=== PATIENT | male | born 2005 | race Two or more races ===

== ENCOUNTER 2024-12-26 02:59 | Inpatient (IN) | payer MEDICAID ==
[~2024-12-26] VITALS: Ht 167.6 cm; Wt 54.5 kg
[2024-12-26 03:36] LABS: Eosinophils % (auto) 0.1 % (0.0-7.0)
--- NOTE | 2024-12-26 03:38 | ED.PDOC ---
GI ASSESSMENT HPI Comments 19 year old male came to the ER due to abdominal pain. Patient states for the past 6 hours he has been having epigastric abdominal pain, sharp, intermittent, no radiating associated with a nausea and vomiting and lightheadedness. States last bowel movement was yesterday. Denies any history of abdominal surgeries. Chief Complaint: Abdominal Pain Time Seen by MD: 03:38 Reviewed Notes: Nurses Notes Allergies: Coded Allergies: NO KNOWN ALLERGIES (Unverified , 12/26/24) Information Source: Patient Mode of Arrival: Ambulatory Timing: Hours Duration: Intermittent Prehospital treatment: None Quality: Sharp Vomitus: Watery Stool: Normal Severity: Moderate Recent: Possible spoiled food Recent Hx of: None Pain Location: Epigastric Modifying Factors: Food, Position, Nothing Associated sign and symptoms: Nausea, Vomiting, Abdominal Pain Past Medical History PAST MEDICAL HISTORY: Denies Surgical History: Denies all surgeries Family History Family History: Reviewed,noncontributory to illness Social History Smoker: Non-Smoker Alcohol: Denies ETOH Use Drugs: Denies Drug Use Lives In: Home Constitutional: denies: chills, diaphoresis, fatigue, fever, malaise, sweats, weakness, others EENTM: denies: blurred vision, double vision, ear bleeding, ear discharge, ear drainage, ear pain, ear ringing, eye pain, eye redness, hearing loss, mouth pain, mouth swelling, nasal discharge, nose bleeding, nose congestion, nose pain, photophobia, tearing, throat pain, throat swelling, voice changes, others Respiratory: denies: cough, hemoptysis, orthopnea, SOB at rest, shortness of breath, SOB with excertion, stridor, wheezing, others Cardiovascular: denies: chest pain, dizzy spells, diaphoresis, Dyspnea on exertion, edema, irregular heart beat, left arm pain, lightheadedness, palpitations, PND, syncope, others Gastrointestinal: reports: abdominal pain, nausea, vomiting; denies: abdomen distended, blood streaked bowels, constipated, diarrhea, dysphagia, difficulty swallowing, hematemesis, melena, poor appetite, poor fluid intake, rectal bleeding, rectal pain, others Genitourinary: denies: burning, dysuria, flank pain, frequency, hematuria, incontinence, penile discharge, penile sore, pain, testicle pain, testicle swelling, urgency, others Neurological: denies: dizziness, fainting, headache, left sided numbness, left sided weakness, numbness, paresthesia, pre-existing deficit, right sided numbness, right sided weakness, seizure, speech problems, tingling, tremors, weakness, others Musculoskeletal: denies: back pain, gout, joint pain, joint swelling, muscle pain, muscle stiffness, neck pain, others Integumetry: denies: bruises, change in color, change in hair/nails, dryness, laceration, lesions, lumps, rash, wounds, others Allergic/Immunocompromised: denies: Difficulty Healing, Frequent Infections, Hives, Itching, others Hematologic/Lymphatic: denies: anemia, blood clots, easy bleeding, easy bruising, swollen glands, others Endocrine: denies: excessive hunger, excessive sweating, excessive thirst, excessive urination, flushing, intolerance to cold, intolerance to heat, unexpla ined weight gain, unexplained weight loss, others Physical Exam General Appearance: No Apparent Distress, Normal HEENT: Normal ENT Inspection, Pharynx Normal, TMs Normal Neck: Full Range of Motion, Non-Tender, Normal, Normal Inspection Respiratory: Chest Non-Tender, Lungs Clear, No Accessory Muscle Use, No Respiratory Distress, Normal Breath Sounds Cardiovascular: No Edema, No JVD, No Murmur, No Gallop, Normal Peripheral Pulses, Regular Rate/Rhythm Breast Exam: Deferred Gastrointestinal: No Organomegaly, Non Tender, No Pulsatile Mass, Normal Bowel Sounds, Soft Genitalia: Deferred Pelvic: Deferred Rectal: Deferred Extremities: No calf tenderness, Normal capillary refill, Normal inspection, Normal range of motion, Non-tender, No pedal edema Musculoskeletal : Apperance: Normal 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 Was a procedure done?: No GI differential Dx Differential Diagnosis: Appendicitis, Bowel Obstruction, Cholangitis, Cholecystitis, Constipation, Diverticular disease, Gastritis/PUD, Nela roenteritis, Hernia, Hepatitis, Inflammatory BD, Ischemic Bowel, Pancreatitis, UTI, Urolithiasis, Food Poisoning, Viral, Impaction, Mass, Stress Ulcer, Kidney Stone X-Ray, Labs, Meds, VS Vital Signs Date Time Temp Pulse Resp B/P (MAP) Pulse Ox O2 Delivery O2 Flow Rate FiO2 12/26/24 03:35 Room Air* 0 21 12/26/24 03:09 98.3 96 20 115/91 (99) 99 98.3 Lab Test 12/26/24 03:18 Range/Units White Blood Count 22.5 H 4.4-10.8 10^3/uL Red Blood Count 5.67 4.5-5.90 10^6/uL Hemoglobin 17.8 H 13.5-17.5 g/dL Hematocrit 52.6 41.0-53.0 % Mean Corpuscular Volume 92.7 80.0-100.0 fL Mean Corpuscular Hemoglobin 31.3 28.0-32.0 pg Mean Corpuscular Hemoglobin Concent 33.8 32.0-36.0 g/dL Red Cell Distribution Width 12.6 11.8-14.3 % Platelet Count 210 140-450 10^3/uL Mean Platelet Volume 8.8 6.9-10.8 fL Neutrophils (%) (Auto) 91.2 H 37.0-80.0 % Lymphocytes (%) (Auto) 3.7 L 10.0-50.0 % Monocytes (%) (Auto) 4.6 0.0-12.0 % Eosinophils (%) (Auto) 0.1 0.0-7.0 % Basophils (%) (Auto) 0.4 0.0-2.0 % Neutrophils # (Auto) 20.5 H 1.6-8.6 10 ^3/uL Lymphocytes # (Auto) 0.8 0.4-5.4 10 ^3/uL Monocytes # (Auto) 1.0 0-1.3 10 ^3/uL Eosinophils # (Auto) 0 0-0.8 10 ^3/uL Basophils # (Auto) 0.1 0-0.2 10 ^3/uL Nucleated Red Blood Cells 0.1 % Sodium Level 137 136-145 mmol/L Potassium Level 4.3 3.5-5.1 mmol/L Chloride Level 104 98-107 mmol/L Carbon Dioxide Level 25 20-31 mmol/L Anion Gap 8 5-15 Blood Urea Nitrogen 11 9-23 mg/dL Creatinine 0.97 0.700-1.30 mg/dL Glomerular Filtration Rate Calc 115 >90 mL/min BUN/Creatinine Ratio 11.3 10.0-20.0 Serum Glucose 165 H 74-106 mg/dL Calcium Level 10.2 8.7-10.4 mg/dL Total Bilirubin 0.8 0.2-1.0 mg/dL Aspartate Amino Transferase (AST) 33 13-40 U/L Alanine Aminotransferase (ALT) 59 H 7-40 U/L Alkaline Phosphatase 57 46-116 U/L Total Protein 8.2 5.7-8.2 g/dL Albumin 5.4 H 3.2-4.8 g/dL Lipase 38 12-53 U/L Exam: CT CT AB PEL WO CON-NO ORAL OR IV History: pain Comparison Study: None Technique: Multidetector spiral CT of the abdomen was performed from lung bases to pubic symphysis. Imaging was performed without IV contrast. Axial, coronal and sagittal multiplanar reformats were obtained from the axial data set by the technologist. Radiation Dose : 1. Abdomen/Pelvis: CTDIvol 5.21 mGy, DLP 290.12 mGy*cm. Findings: Evaluation of solid organs is limited due to lack of intravenous contrast use. Lung Bases: No acute or significant lung base finding. Normal heart size. No pleural or pericardial effusion. Liver: The liver is normal in size. No focal lesions. Gallbladder and Biliary Tree: Unremarkable Spleen: Unremarkable Pancreas: The pancreas is grossly normal in appearance. Adrenal Glands: Unremarkable Kidneys: Kidneys are grossly normal without calculi or hydronephrosis. Bladder: Grossly unremarkable for degree of distention. Bowel: The stomach is grossly normal in appearance. Excess retained colonic stool. Minimally distended fluid-filled segments of small bowel are noted throughout the abdomen without evidence of obstruction. The appendix is normal. Ascites: Absent Lymphadenopathy: No mesenteric, retroperitoneal or periportal lymphadenopathy. Abdominal Wall and Mesentery: Unremarkable. Vasculature: The visualized abdominal aorta is normal in size and caliber. Evaluation of abdominal and pelvic vessels is limited due to lack of intravenous contrast. Pelvic Organs: Unremarkable Musculoskeletal: No aggressive focal bony lesions, acute fractures or dislocation. IMPRESSION: 1. No acute abdominal or pelvic findings. 2. Retained colonic stool and minimally distended fluid-filled segments of small bowel without evidence of obstruction. Time of 1ST Reevaluation: 03:23 Reevaluation 1ST: Unchanged Time of 2ND Reevaluation: 05:09 Reevaluation 2ND: Improved Patient Education/Counseling: Diagnosis, Treatment, Prognosis, Need For Follow Up Family Education/Counseling: Diagnosis, Treatment, Prognosis, Need For Follow Up, No Family Present Additional Information Previous visit documents reviewed: The following tests were ordered, and results were reviewed by me: Additional Information was gathered from interviewing the following independent historians: I reviewed and agreed with the following test results read by other providers: I discussed treatment and results with medical personnel and: Patient Comprehensive systems review obtained and negative except for what is stated in the HPI. although pt's ct is unremarkable, pt has leukocytosis and continuation of pain. however, on exam, he has no tenderness. i will admit him for observation and repeat tests Departure 1 Departure Time of Disposition: 05:11 Impression: Primary Impression: Constipation Qualified Codes: K59.01 - Slow transit constipation Additional Impressions: Abdominal pain Qualified Codes: R10.84 - Generalized abdominal pain Leukocytosis Qualified Codes: D72.829 - Elevated white blood cell count, unspecified Disposition: ADMITTED INPATIENT Admit to: Med Surg Condition: Stable Discharged With: Self, Relative Critical Care Note Critical Care Time?: Yes (55 min-critical care time only) Critical care comment: Due to concerns for patients condition deteriorating, the care required my highest level of attention and readiness to intervene. I assessed the patient, reviewed the medical records, ordered the appropriate tests and treatments, then reassessed for results and responsiveness. I communicated with medical personnel and consultants and formulated a plan of care. Total critical care time excludes any procedures Stability Stability form required: No Heart Score Heart Score: Heart Score Response (Comments) Value History N/A 0 EKG N/A 0 Age N/A 0 Risk Factors N/A 0 Troponin N/A 0 Total 0 I personally scribed for TERRI DWYER MD ([email or web address]) on 12/26/24 at 03:38. Electronically submitted by Donato Salas ([employer]). I personally scribed for TERRI DWYER MD ([email or web address]) on 12/26/24 at 04:24. Electronically submitted by Donato Salas ([email or web address]). TERRI DWYER MD Dec 26, 2024 03:38
--- NOTE | 2024-12-26 03:44 | DVH ---
Exam: CT CT AB PEL WO CON-NO ORAL OR IV History: pain Comparison Study: None Technique: Multidetector spiral CT of the abdomen was performed from lung bases to pubic symphysis. I maging was performed without IV contrast. Axial, coronal and sagittal multiplanar reformats were obta ined from the axial data set by the technologist. Radiation Dose : 1. Abdomen/Pelvis: CTDIvol 5.21 mGy, DLP 290.12 mGy*cm. Findings: Evaluation of solid organs is limited due to lack of intravenous contrast use. Lung Bases: No acute or significant lung base finding. Normal heart size. No pleural or pericardial effusion. Liver: The liver is normal in size. No focal lesions. Gallbladder and Biliary Tree: Unremarkable Spleen: Unremarkable Pancreas: The pancreas is grossly normal in appearance. Adrenal Glands: Unremarkable Kidneys: Kidneys are grossly normal without calculi or hydronephrosis. Bladder: Grossly unremarkable for degree of distention. Bowel: The stomach is grossly normal in appearance. Excess retained colonic stool. Minimally distende d fluid-filled segments of small bowel are noted throughout the abdomen without evidence of obstructi on. The appendix is normal. Ascites: Absent Lymphadenopathy: No mesenteric, retroperitoneal or periportal lymphadenopathy. Abdominal Wall and Mesentery: Unremarkable. Vasculature: The visualized abdominal aorta is normal in size and caliber. Evaluation of abdominal a nd pelvic vessels is limited due to lack of intravenous contrast. Pelvic Organs: Unremarkable Musculoskeletal: No aggressive focal bony lesions, acute fractures or dislocation. IMPRESSION: 1. No acute abdominal or pelvic findings. 2. Retained colonic stool and minimally distended fluid-filled segments of small bowel without eviden ce of obstruction. Radiation optimization: All CT scans at this facility use at least one of these dose optimization román hniques: automated exposure control mA and/or kV adjustment per patient size (includes targeted exam s where dose is matched to clinical indication) or iterative reconstruction.
[2024-12-26 04:06] LABS: Alkaline Phosphatase 57 U/L (46-116); Anion Gap 8 (5-15); Aspartate Aminotransferase 33 U/L (13-40); BUN/Creatinine Ratio 11.3 (10.0-20.0); Blood Urea Nitrogen 11 mg/dL (9-23); Calcium 10.2 mg/dL (8.7-10.4); Carbon Dioxide 25 mmol/L (20-31); Chloride 104 mmol/L (98-107); Lipase 38 U/L (12-53); Potassium 4.3 mmol/L (3.5-5.1); Sodium 137 mmol/L (136-145)
[2024-12-26 04:07] LABS: Bilirubin, Total 0.8 mg/dL (0.2-1.0)
[2024-12-26 04:17] LABS: Alanine Aminotransferase 59 U/L (7-40); Albumin 5.4 g/dL (3.2-4.8); Glucose 165 mg/dL (74-106); Total Protein 8.2 g/dL (5.7-8.2)
[2024-12-26 04:49] LABS: Basophils # (auto) 0.1 10 ^3/uL (0-0.2); Eosinophils # (auto) 0 10 ^3/uL (0-0.8); Lymphocytes # (auto) 0.8 10 ^3/uL (0.4-5.4); White Blood Cell 22.5 10^3/uL (4.4-10.8)
[2024-12-26 04:50] LABS: Basophils % (auto) 0.4 % (0.0-2.0); Hematocrit 52.6 % (41.0-53.0); Lymphocytes % (auto) 3.7 % (10.0-50.0); Mean Corpuscular Hemoglobin 31.3 pg (28.0-32.0); Mean Corpuscular Hgb Conc. 33.8 g/dL (32.0-36.0); Mean Corpuscular Volume 92.7 fL (80.0-100.0); Monocytes % (auto) 4.6 % (0.0-12.0); Neutrophils # (auto) 20.5 10 ^3/uL (1.6-8.6); Neutrophils % (auto) 91.2 % (37.0-80.0); Nucleated Red Blood Cells % 0.1 %; Platelet Count (auto) 210 10^3/uL (140-450); Red Blood Cells 5.67 10^6/uL (4.5-5.90); Red Cell Distribution Width 12.6 % (11.8-14.3)
[2024-12-26 04:53] LABS: Hemoglobin 17.8 g/dL (13.5-17.5)
[2024-12-26] MEDS: cefTRIAXone 1GM/50ML D5W 50 ML IV ONE (05:22)
[2024-12-26] MEDS: SODIUM CHLORIDE 0.9% 1,000 ML IV ONE ×2 (07:02→08:52)
[2024-12-26] MEDS: ACETAMINOPHEN 325 MG TAB PO ONE ×2 (07:02→17:05)
[2024-12-26] MEDS: metroNIDAZOLE 500MG/100ML 100 ML IV ONE (07:02)
--- NOTE | 2024-12-26 07:08 | DVHHP2 ---
History of Present Illness Reason for Visit: abd pain History of Present Illness 19-year-old male no past medical history no surgical history chief complaint patient states that he had ate pizza and had a coffee prior to intractable vomiting and not able to keep anything down. Patient states the 11:00 p.m. his symptoms got worse and he stated he has been vomiting more than 10 times. He has no blood in his vomit he does complain of sharp abdominal pain no diarrhea no chest pain no shortness a breath. Patient states nothing was making it better nothing makes it worse. When evaluating patient's labs and imaging patient found to have a white count of 22.5 hemoglobin was 17.8 glucose was [address] scan abdomen pelvis shows constipation no obstruction. With these findings we will admit patient for further workup and care we will provide IV antibiotics prophylaxis along with medication for nausea and vomiting Past Medical History denies any medical problems Past Surgical History denies any surgical history Family History Reviewed, non-contributory to the management of this case. Past Social History The patient lives at home, denies smoking, alcohol or illicit drugs abuse. Review of Systems Constitutional: No: Fever, Chills, Sweats, Weakness, Malaise, Other Eyes: No: Pain, Vision change, Conjunctivae inflammation, Eyelid inflammation, Other, Redness ENT: No: Ear pain, Ear discharge, Nose pain, Nose discharge, Nose congestion, Mouth pain, Mouth swelling, Throat pain, Throat swelling, Other Respiratory: No: Cough, Dry, Shortness of breath, SOB with excertion, Wheezing, Hemoptysis, Pleuritic Pain, Sputum, Wheezing, Other Cardiovascular: No: Chest Pain, Palpitations, Orthopnea, Paroxysmal Noc. Dyspnea, Edema, Lt Headedness, Other Gastrointestinal: Nausea, Vomiting, Abdominal Pain; No: Diarrhea, Constipation, Melena, Hematochezia, Other Genitourinary: No Dysuria, No Frequency, No Incontinence, No Hematuria, No Retention, No Other Musculoskeletal: No: other, neck pain, shoulder pain, arm pain, back pain, hand pain, leg pain, foot pain Skin: No: Rash, Lesions, Jaundice, Bruising, Other Neurological: No: Weakness, Numbness, Incoordination, Change in speech, Confusion, Seizures, Other Allergies: Coded Allergies: NO KNOWN ALLERGIES (Unverified , 12/26/24) Exam Vital Signs Vital Signs Date Time Temp Pulse Resp B/P (MAP) Pulse Ox O2 Delivery O2 Flow Rate FiO2 12/26/24 07:02 100.2 12/26/24 06:56 112 18 89/49 (62) 99 12/26/24 03:35 Room Air* 0 21 General Appearance: Alert, Oriented X3, Cooperative, No acute distress HEENT: Atraumatic, PERRLA, EOMI, Mucous membr. moist/pink Respiratory: Clear to auscultation, Normal air movement Cardiovascular: Regular rate, Normal S1, Normal S2, No murmurs, Other (Tachycardia) Abdominal: Normal bowel sounds, Soft, No hepatospenomegaly, No masses, Other (guarding and rebound tenderness) Extremities: No clubbing, No cyanosis, No edema, Normal pulses, No tenderness/swelling Skin: No rashes, No breakdown, No significant lesion Neuro: Normal speech, Strength at 5/5 X4 ext, Normal tone, Sensation intact, Cranial nerves 3-12 NL Psych/Mental Status: Mental status NL, Mood NL Labs/Xrays CT scan shows a constipation no obstruction I reviewed labs, imaging CT scan abdomen pelvis, EKG and all diagnostic studies on this patient from ED records and the medical chart Labs Test 12/26/24 03:18 Range/Units White Blood Count 22.5 H 4.4-10.8 10^3/uL Red Blood Count 5.67 4.5-5.90 10^6/uL Hemoglobin 17.8 H 13.5-17.5 g/dL Hematocrit 52.6 41.0-53.0 % Mean Corpuscular Volume 92.7 80.0-100.0 fL Mean Corpuscular Hemoglobin 31.3 28.0-32.0 pg Mean Corpuscular Hemoglobin Concent 33.8 32.0-36.0 g/dL Red Cell Distribution Width 12.6 11.8-14.3 % Platelet Count 210 140-450 10^3/uL Mean Platelet Volume 8.8 6.9-10.8 fL Neutrophils (%) (Auto) 91.2 H 37.0-80.0 % Lymphocytes (%) (Auto) 3.7 L 10.0-50.0 % Monocytes (%) (Auto) 4.6 0.0-12.0 % Eosinophils (%) (Auto) 0.1 0.0-7.0 % Basophils (%) (Auto) 0.4 0.0-2.0 % Neutrophils # (Auto) 20.5 H 1.6-8.6 10 ^3/uL Lymphocytes # (Auto) 0.8 0.4-5.4 10 ^3/uL Monocytes # (Auto) 1.0 0-1.3 10 ^3/uL Eosinophils # (Auto) 0 0-0.8 10 ^3/uL Basophils # (Auto) 0.1 0-0.2 10 ^3/uL Nucleated Red Blood Cells 0.1 % Sodium Level 137 136-145 mmol/L Potassium Level 4.3 3.5-5.1 mmol/L Chloride Level 104 98-107 mmol/L Carbon Dioxide Level 25 20-31 mmol/L Anion Gap 8 5-15 Blood Urea Nitrogen 11 9-23 mg/dL Creatinine 0.97 0.700-1.30 mg/dL Glomerular Filtration Rate Calc 115 >90 mL/min BUN/Creatinine Ratio 11.3 10.0-20.0 Serum Glucose 165 H 74-106 mg/dL Calcium Level 10.2 8.7-10.4 mg/dL Total Bilirubin 0.8 0.2-1.0 mg/dL Aspartate Amino Transferase (AST) 33 13-40 U/L Alanine Aminotransferase (ALT) 59 H 7-40 U/L Alkaline Phosphatase 57 46-116 U/L Total Protein 8.2 5.7-8.2 g/dL Albumin 5.4 H 3.2-4.8 g/dL Lipase 38 12-53 U/L Assessment/Plan Assessment/Plan acute intractable abdominal pain can be from constipation ct scan shows constipation ordered miralax acute intractable vomiting ordered ivf ordered zofran acute leukocytosis likley from dehydration will ordered ppx ceftriaxone and flagyl since with continued fever ordered blood culture acute dehydration ordered ivf bolus ordered iv fluid hydration acute tachycardia ordered ivf hydration ordered ekg fen/ppx clr liquid as can tolerate ivf protonix no dvt ppx since pt is ambulatory scd plan admit to tele iv hydration Plan discussed with: Patient Date of Service: Dec 26, 2024 Billing Provider: DOUGLAS LONDONO DNP Common Visit Codes: 25385-[id number] INP/OBS CARE (HIGH) DOUGLAS LONDONO DNP Dec 26, 2024 07:08
[2024-12-26] MEDS ORDERED: ONDANSETRON HCL 4 MG/2 ML VIAL IV PRN (07:15)
[2024-12-26] MEDS ORDERED: DOCUSATE SOD 100 MG CAP PO PRN (07:15)
[2024-12-26] MEDS ORDERED: MORPHINE SULFATE INJ 2 MG/ml SYRG IV PRN (07:15)
[2024-12-26] MEDS: SODIUM CHLORIDE 0.9% 1,000 ML IV SCH (07:15)
[2024-12-26] MEDS ORDERED: NITROGLYCERIN 0.4 MG SL TAB SL PRN (07:15)
[2024-12-26] MEDS: PANTOPRAZOLE 40 MG/10 ML VIAL INJ IV ONE (07:45)
[2024-12-26] MEDS ORDERED: metroNIDAZOLE 500MG/100ML 100 ML IV ONE ×2 (08:00→08:15)
[2024-12-26] MEDS ORDERED: cefTRIAXone 1GM/50ML D5W 50 ML IV ONE (08:00)
[2024-12-26] MEDS ORDERED: cefTRIAXone 1GM/50ML D5W 50 ML IV SCH (09:00)
[2024-12-26] MEDS ORDERED: PANTOPRAZOLE 40 MG/10 ML VIAL INJ IV SCH (10:00)
[2024-12-26] MEDS: PANTOPRAZOLE 40 MG/10 ML VIAL INJ IV SCH (10:00)
[2024-12-26 11:33] VITALS: BP 102/57; PULSE 104; RESP 16; TEMP 98; O2SAT 99
[2024-12-26 13:00] VITALS: BP 102/57; PULSE 100; RESP 18; TEMP 98; O2SAT 98
[2024-12-26] MEDS: metroNIDAZOLE 500MG/100ML 100 ML IV SCH (13:19)
[2024-12-26 17:00] VITALS: BP 107/60; PULSE 115; RESP 20; TEMP 100.3; O2SAT 20
[2024-12-26] MEDS ORDERED: ACETAMINOPHEN 325 MG TAB PO PRN (17:00)
[2024-12-26] MEDS: IBUPROFEN 600 MG TAB PO ONE (17:05)
[2024-12-26 20:00] VITALS: PULSE 86; PULSE 91; RESP 18; O2SAT 96
[2024-12-26 21:00] VITALS: BP 96/51; PULSE 98; RESP 19; TEMP 98.1; O2SAT 97
[2024-12-27 01:00] VITALS: BP_SYST 101; BP_SYST 118; BP_DIAS 59; BP_DIAS 67; PULSE 66; PULSE 86; RESP 18; RESP 19; TEMP 97.5; TEMP 97.9; O2SAT 100; O2SAT 96
[2024-12-27 05:00] VITALS: BP 102/58; PULSE 72; RESP 19; TEMP 98.1; O2SAT 96
[2024-12-27 06:40] LABS: Basophils # (auto) 0 10 ^3/uL (0-0.2); Basophils % (auto) 0.3 % (0.0-2.0); Eosinophils # (auto) 0.1 10 ^3/uL (0-0.8); Eosinophils % (auto) 1.9 % (0.0-7.0); Hematocrit 41.2 % (41.0-53.0); Hemoglobin 14.2 g/dL (13.5-17.5); Lymphocytes % (auto) 15.8 % (10.0-50.0); Mean Corpuscular Hemoglobin 31.8 pg (28.0-32.0); Mean Corpuscular Hgb Conc. 34.5 g/dL (32.0-36.0); Mean Corpuscular Volume 92.2 fL (80.0-100.0); Monocytes # (auto) 0.7 10 ^3/uL (0-1.3); Monocytes % (auto) 11.5 % (0.0-12.0); Neutrophils # (auto) 4.5 10 ^3/uL (1.6-8.6); Neutrophils % (auto) 70.5 % (37.0-80.0); Nucleated Red Blood Cells % 0.1 %; Platelet Count (auto) 166 10^3/uL (140-450); Red Blood Cells 4.47 10^6/uL (4.5-5.90); Red Cell Distribution Width 12.6 % (11.8-14.3); White Blood Cell 6.4 10^3/uL (4.4-10.8)
[2024-12-27 06:53] LABS: Alanine Aminotransferase 29 U/L (7-40); Anion Gap 7 (5-15); BUN/Creatinine Ratio 9.9 (10.0-20.0); Carbon Dioxide 23 mmol/L (20-31); Glucose 100 mg/dL (74-106); Potassium 3.9 mmol/L (3.5-5.1); Sodium 140 mmol/L (136-145)
[2024-12-27 06:54] LABS: Albumin 3.6 g/dL (3.2-4.8); Alkaline Phosphatase 37 U/L (46-116); Aspartate Aminotransferase 14 U/L (13-40); Blood Urea Nitrogen 7 mg/dL (9-23); Calcium 8.2 mg/dL (8.7-10.4); Chloride 110 mmol/L (98-107); Total Protein 5.6 g/dL (5.7-8.2)
[2024-12-27 06:55] LABS: Bilirubin, Total 0.5 mg/dL (0.2-1.0)
[2024-12-27 08:00] VITALS: PULSE 86; RESP 16
[2024-12-27] MEDS: cefTRIAXone 1GM/50ML D5W 50 ML IV SCH (08:45)
[2024-12-27 09:00] VITALS: BP 106/70; PULSE 67; RESP 20; TEMP 98; O2SAT 100
--- NOTE | 2024-12-27 14:08 | DVHPNRES ---
Progress Note Date Seen: Dec 27, 2024 Resident Creating Document: HEIDI DEL VALLE RESIDENT Medical Necessity Reason Pt with a Central, PICC or Fol: No Subjective Review of Systems 19-year-old male no past medical history no surgical history chief complaint patient states that he had ate pizza and had a coffee prior to intractable vomiting and not able to keep anything down. Patient states the 11:00 p.m. his symptoms got worse and he stated he has been vomiting more than 10 times. He has no blood in his vomit he does complain of sharp abdominal pain no diarrhea no chest pain no shortness a breath. Patient states nothing was making it better nothing makes it worse. Patient was seen and examined on the bedside. He is alert oriented x3. No vomiting since morning and tolerating oral liquid diet. no other active complaint. Constitutional: No: Fever, Chills, Sweats, Weakness, Malaise, Other Eyes: No: Pain, Vision change, Conjunctivae inflammation, Eyelid inflammation, Other, Redness ENT: No: Ear pain, Ear discharge, Nose pain, Nose discharge, Nose congestion, Mouth pain, Mouth swelling, Throat pain, Throat swelling, Other Respiratory: Shortness of breath, improving No: Cough, Dry,Wheezing, Hemoptysis, Pleuritic Pain, Sputum, Wheezing, Other Cardiovascular: No: Chest Pain, Palpitations, Orthopnea, Paroxysmal Noc. Dyspnea, Edema, Lt Headedness, Other Gastrointestinal: Nausea, Vomiting, Constipation, Abdominal Pain, Diarrhea ,Melena, Hematochezia, Other Musculoskeletal: No: other, neck pain, shoulder pain, arm pain, back pain, hand pain, leg pain, foot pain Neurological:; No: Weakness, Numbness, Incoordination, Change in speech, Confusion, Seizures Objective vital signs Vital Sign Date Time Temp Pulse Resp B/P (MAP) Pulse Ox O2 Delivery O2 Flow Rate FiO2 12/27/24 09:00 98.0 67 20 106/70 (82) 100 98.0 12/27/24 08:00 Room Air* 0 21 Total Intake and Output 12/26/24 12/26/24 12/27/24 15:00 23:00 07:00 Intake Total 1560 ml 200 ml 300 ml Output Total 0 ml Balance 1560 ml 200 ml 300 ml medications Current Medications Medications Dose Ordered Sig/Federico Route Start Time Stop Time Status Last Admin Dose Admin Sodium Chloride 1,000 ml @ 120 mls/hr Q8H20M IV 12/26/24 07:15 12/27/24 08:45 120 MLS/HR Ondansetron HCl 4 mg Q4HP PRN IV 12/26/24 07:15 Docusate Sodium 100 mg BIDPRN PRN PO 12/26/24 07:15 Morphine Sulfate 2 mg Q4HPRN PRN IV 12/26/24 07:15 Nitroglycerin 0.4 mg Q5MINP PRN SL 12/26/24 07:15 Metronidazole 100 ml @ 100 mls/hr Q8HR IV 12/26/24 14:00 12/27/24 13:11 100 MLS/HR Pantoprazole Sodium 40 mg DAILY IV 12/26/24 10:00 12/27/24 10:25 40 MG Ceftriaxone Sodium 50 ml @ 100 mls/hr DAILY@09 IV 12/27/24 09:00 12/27/24 08:45 100 MLS/HR Acetaminophen 650 mg Q4HP PRN PO 12/26/24 17:00 Examination Physical examination: General Appearance: Alert, Oriented X3, Cooperative, No acute distress HEENT: Atraumatic, PERRLA, EOMI, Mucous membrane moist/pink Respiratory: Clear to auscultation, Normal air movement Cardiovascular: Regular rate, Normal S1, Normal S2, No murmurs, no chest wall tenderness Abdominal: Normal bowel sounds, Soft, No tenderness, No hepatospenomegaly, No masses Extremities: No clubbing, No cyanosis, No edema, Normal pulses, No tenderness/swelling Skin: No rashes, No breakdown, No significant lesion Neuro: Normal gait, Normal speech, Strength at 5/5 X4 ext, Normal tone, Sensation intact, Cranial nerves 3-12 NL, Reflexes 2+ Psych/Mental Status: Mental status NL, Mood NL laboratory and microbiology Laboratory Tests 12/27/24 05:45 Test 12/27/24 05:45 Range/Units Serum Glucose 100 74-106 mg/dL Labs and/or images reviewed: Labs reviewed by me, Image(s) reviewed by me Problem List/Assessment/Plan Problem List/Assessment/Plan Assessment and plan: # Acute intractable vomiting likely due to gastroenteritis/ constipation # Ruled out SBO # Leucocytosis likely due to dehydration # Sepsis/SIRS likely due to above # Tachycardia and hemoconcentration likely due to dehydration - CT abdomen pelvis demonstrated retained colonic stool and minimally distended fluid-filled segments of small bowel without evidence of obstruction - Clear liquid diet - IV normal saline at 1:20 a.m. mL/hours - IV ceftriaxone 1 g daily - IV metronidazole 500 mg 8 hourly - Lactulose 15 ml po once - Colace 100 mg p.o. b.i.d. Goal of care discussed with the patient for more than 20 minutes full code Plan discussed with Dr. Stafford Plan discussed with: Patient, Other My Orders My Orders Orders - HEIDI DEL VALLE Procedure Category Date Status Time Free T3 LAB 12/27/24 Transmitted 14:05 Free T4 (Free LAB 12/27/24 Transmitted Thyroxine) 14:05 HEIDI DEL VALLE RESIDENT Dec 27, 2024 14:08
[2024-12-27 14:29] LABS: Free T3 2.43 pg/mL (2.3-4.2)
[2024-12-27 14:30] LABS: Free T4 (Free Thyroxine) 0.93 ng/dL (0.89-1.76)
[2024-12-27] MEDS ORDERED: LACTULOSE 20Gm/30ML SOLN PO ONE (16:15)
[2024-12-27 17:00] VITALS: BP 118/83; PULSE 82; RESP 16; TEMP 98; O2SAT 99
== END 2024-12-27 17:55 | disposition left against medical advice (07) | DRG 249 ==
LOC: ER 02:59 → OVERFLOW 07:08 → ER 07:35 → TELE-WESTW 11:20
PROVIDERS: ADMIT Student in an Organized Health Care Education/Training Program; ATTEND Student in an Organized Health Care Education/Training Program
DX: A09 Infectious gastroenteritis and colitis, unspecified (principal); R65.10 Systemic inflammatory response syndrome (SIRS) of non-infectious origin without acute organ dysfunction; E86.0 Dehydration; Z53.29 Procedure and treatment not carried out because of patient's decision for other reasons; K59.00 Constipation, unspecified; Z79.899 Other long term (current) drug therapy
CPT/HCPCS: 36415; 74176; 80053; 83690; 84439; 84443; 84481; 85025; 96361; 96365; 99291; G0378; J2470; J3490